=== PATIENT | female | born 1950 | race Caucasian/White ===

== ENCOUNTER 2020-01-17 13:30 | Emergency (ER) | payer MEDICARE ==
[~2020-01-17] VITALS: Ht 170.2 cm; Wt 61.7 kg
[2020-01-17 13:46] VITALS: BP_SYST 135
--- NOTE | 2020-01-17 13:50 | NUR ---
Patient to ER bed 2 to gown for evaluation. Side rails up.
--- NOTE | 2020-01-17 13:51 | NUR ---
pt arrives via BLS s/p MF. Pt denies KO. C/o 02/16 left sided arm and hip pain. No deformity noted. Pt is unable to lift her left arm.
--- NOTE | 2020-01-17 14:45 | NUR ---
ER at bedside examining patient.
[2020-01-17] MEDS: KETOROLAC TROMETHAMINE 30 MG VIAL IM ONE (15:15)
--- NOTE | 2020-01-17 15:15 | NUR ---
medicated the pt w/ Toradol IM per MD order. Will reassess
--- NOTE | 2020-01-17 15:30 | NUR ---
Patient transported to radiology via gurney, accompanied by telemetry technician.
--- NOTE | 2020-01-17 16:36 | NUR ---
pt reports feeling better
--- NOTE | 2020-01-17 17:30 | NUR ---
sling applied to the left arm. Pt tolerated well. Pt is able to move the fingers on the affected extremity
--- NOTE | 2020-01-17 18:26 | NUR ---
Patient to be transferred to [facility]. Is being transferred due to higher level of care. Receiving facility has accepting physician and available space. ER physician has signed transfer form. Patient or responsible republican has agreed to transfer and signed form. Patient belongings inventoried and will be sent with patient. Copy of nursing notes, lab reports, EKG, Physicians Orders and X-rays to be sent with patient. Report called to Chrissy MACDONALD at receiving facility. Receiving physician is Henry. [facility] has been called for transfer. ETA is [id number].
--- NOTE | 2020-01-17 18:48 | NUR ---
# 20 gauge angiocath placed to RFA. Use of asceptic technique. Opsite placed over site. Blood return noted. Blood for lab drawn from site. Flushed with 10 cc of normal saline. No evidence of infiltration noted. Patient tolerated well.
[2020-01-17 19:16] VITALS: BP_SYST 155
--- NOTE | 2020-01-17 19:29 | NUR ---
REPORT GIVEN TO PIPER CRANDALL. CURRENTLY WAITING FOR TRANSPORTATION
== END 2020-01-17 19:29 | disposition short-term general hospital (02) ==
LOC: SED 13:30
DX: S42.92XA Fracture of left shoulder girdle, part unspecified, initial encounter for closed fracture (principal); S32.512A Fracture of superior rim of left pubis, initial encounter for closed fracture; W18.09XA Striking against other object with subsequent fall, initial encounter; Y93.89 Activity, other specified; Y92.098 Other place in other non-institutional residence as the place of occurrence of the external cause; Y99.8 Other external cause status
CPT/HCPCS: 72192; 73020; 96372; 99285; J1885